=== PATIENT | male | born 1970 | race Caucasian/White ===

== ENCOUNTER 2021-04-03 14:42 | Emergency (ER) | payer OTHER ==
[2021-04-03 14:51] VITALS: BP 137/85
--- NOTE | 2021-04-03 15:29 | XRAY Report ---
PROCEDURE: Chest 1 View X-Ray INDICATIONS: Chest Pain TECHNIQUE: One view of the chest was acquired. COMPARISON: None FINDINGS: Surgical changes and devices: None. Lungs and pleura: No pleural effusions or pneumothorax. Lungs are hyperinflated and hyperlucent wit h slight coarsening of interstitial markings toward the apices no dense consolidations.. Mediastinum: Mediastinal contours appear normal. Heart size is normal. Bones and chest wall: No suspicious bony lesions. There is callus around a remote, minimally displac ed right sixth rib fracture. Overlying soft tissues appear unremarkable. IMPRESSION: 1. Hyperinflation suggesting asthma or emphysema. 2. No pneumothorax or acute consolidation. Reviewed by: Karlee Hansen MD on 04/03/2021 3:28 PM PDT Approved by: Karlee Hansen MD on 04/03/2021 3:28 PM PDT Station ID: [id number]
[2021-04-03 15:34] LABS: BASOPHILS # (AUTO) 0.1 10^3/uL (0.0-0.1); BASOPHILS % (AUTO) 1.6 %; EOSINOPHILS # (AUTO) 0.3 10^3/uL (0.0-0.7); EOSINOPHILS % (AUTO) 5.2 %; HCT - HEMATOCRIT 44.8 % (42.0-52.0); HGB - HEMOGLOBIN 14.9 g/dL (14.0-18.0); LYMPHOCYTES % (AUTO) 31.8 %; MEAN CORPUSCULAR HEMOGLOBIN 31.1 pg (27.0-31.0); MEAN CORPUSCULAR HGB CONC 33.3 g/dL (32.0-36.0); MEAN CORPUSCULAR VOLUME 93.5 fL (80.0-94.0); MEAN PLATELET VOLUME 8.8 fL (7.4-11.4); MONOCYTES # (AUTO) 0.5 10^3/uL (0.0-1.0); MONOCYTES % (AUTO) 8.1 %; NEUTROPHILS # (AUTO) 3.3 10^3/uL (1.5-6.6); NEUTROPHILS % (AUTO) 53.1 %; PLT - PLATELET COUNT 244 10^3/uL (130-450); RED BLOOD COUNT 4.79 10^6/uL (4.70-6.10); RED CELL DISTRIBUTION WIDTH 12.3 % (12.0-15.0); WHITE BLOOD COUNT 6.2 x10^3/uL (4.8-10.8)
[2021-04-03 15:58] LABS: ALBUMIN 4.8 g/dL (3.2-5.5); ALBUMIN/GLOBULIN RATIO 1.7 (1.0-2.2); BILIRUBIN,TOTAL 0.7 mg/dL (0.2-1.0); CALCIUM 9.5 mg/dL (8.5-10.3); CREATININE 0.9 mg/dL (0.6-1.2); POTASSIUM 4.2 mmol/L (3.5-5.0); TOTAL PROTEIN 7.7 g/dL (6.7-8.2)
[2021-04-03] MEDS ORDERED: IPRATROPIUM/ALBUTEROL 3 ML NEB INH STA (15:59)
[2021-04-03] MEDS ORDERED: predniSONE 20 MG TABLET PO STA (15:59)
--- NOTE | 2021-04-03 16:01 | ED Physician Documentation ---
PD HPI DYSPNEA - Stated complaint Stated Complaint: CHEST PAIN - Chief complaint Chief Complaint: Resp - History obtained from History obtained from: Patient - Additional information Additional information: 50-year-old gentleman with longstanding COPD and asthma ran out of his inhaler early because his insurance changed brands to something that does not work as well. He has 4 days of productive cough, left-sided sharp chest pain especially with coughing and shortness of breath. No fevers. No pedal edema or calf pain. No history of heart problems. Review of Systems Constitutional: denies: Fever, Chills Cardiac: denies: Palpitations Respiratory: denies: Hemoptysis, Wheezing PD PAST MEDICAL HISTORY - Past Medical History Past Medical History: Yes Respiratory: Asthma, COPD - Present Medications Home Medications: Ambulatory Orders Medication Instructions Recorded Confirmed predniSONE [Deltasone] 20 mg PO [id number] #21 tab 04/03/21 - Allergies Allergies/Adverse Reactions: Allergies Allergy/AdvReac Type Severity Reaction Status Date / Time No Known Drug Allergies Allergy Verified 04/03/21 14:51 - Social History Does the pt smoke?: No Smoking Status: Never smoker Does the pt drink ETOH?: No Does the pt have substance abuse?: No - Immunizations Immunizations are current?: Yes - POLST Patient has POLST: No PD ED PE NORMAL - Vitals Vital signs reviewed: Yes - General General: Alert and oriented X 3, No acute distress - HEENT HEENT: PERRL, EOMI - Neck Neck: Supple, no meningeal sign, No bony TTP - Cardiac Cardiac: RRR, No murmur - Respiratory Respiratory: No respiratory distress, Other (Rhonchorous and wheezy especially at the left base) - Abdomen Abdomen: Non tender - Back Back: No CVA TTP, No spinal TTP - Derm Derm: Normal color, Warm and dry - Extremities Extremities: No edema, No calf tenderness / cord - Neuro Neuro: Alert and oriented X 3, Normal speech Results - Vitals Vitals: Vital Signs - 24 hr 04/03/21 04/03/21 04/03/21 14:48 15:47 16:15 Temperature 36.8 C 36.8 C Heart Rate 80 80 80 Respiratory 18 18 24 Rate Blood Pressure 137/85 H 137/85 H O2 Saturation 97 97 Oxygen O2 Source Room air - EKG (time done) 1450 Rate: Rate (enter#) (78) Rhythm: NSR Dixon: Normal Intervals: Normal NH QRS: Normal Ischemia: Normal ST segments - Labs Labs: Laboratory Tests 04/03/21 04/03/21 04/03/21 15:29 15:29 15:29 WBC 6.2 RBC 4.79 Hgb 14.9 Hct 44.8 MCV 93.5 MCH 31.1 H MCHC 33.3 RDW 12.3 Plt Count 244 MPV 8.8 Neut # (Auto) 3.3 Lymph # (Auto) 2.0 [place] # (Auto) 0.5 Eos # (Auto) 0.3 Baso # (Auto) 0.1 Absolute Nucleated RBC 0.00 Nucleated RBC % 0.0 Sodium 139 Potassium 4.2 Chloride 102 Carbon Dioxide 28 Anion Gap 9.0 BUN 16 Creatinine 0.9 Estimated GFR (MDRD) 90 Glucose 106 H Calcium 9.5 Total Bilirubin 0.7 AST 21 ALT 24 Alkaline Phosphatase 82 Troponin I High Sens 2.4 Total Protein 7.7 Albumin 4.8 Globulin 2.9 Albumin/Globulin Ratio 1.7 Lipase 34 - Rads (name of study) 1v chest Radiology: EMP read contemporaneously (hyperinflation, NAD) PD MEDICAL DECISION MAKING - ED course ED course: 50-year-old gentleman presents with chest pain and shortness of breath related to his COPD. No evidence of cardiac issue. Feeling much better after a DuoNeb here. Declined pain medications. Departure - Departure Disposition: 01 Home, Self Care Clinical Impression: COPD with exacerbation Condition: Good Record reviewed to determine appropriate education?: Yes Instructions: COPD Dc, ED Smoking Cessation Prescriptions: predniSONE [Deltasone] 20 mg PO [id number] #[id number] tab Comments: Followup with your doctor in a few days for recheck. Return if worse. Discharge Date/Time: 04/03/21 16:30
== END 2021-04-03 16:30 | disposition home or self-care (01) ==
LOC: ED 14:42
DX: J44.1 Chronic obstructive pulmonary disease with (acute) exacerbation (principal)
CPT/HCPCS: 36415; 71045; 80053; 83690; 84484; 85025; 93005; 94640; 99284; J7512